=== PATIENT | female | born 1945 | race Two or more races ===

== ENCOUNTER 2024-08-30 21:18 | Inpatient (IN) | payer MEDICARE, OTHER ==
[~2024-08-30] VITALS: Ht 149.9 cm; Wt 42.7 kg
[2024-08-30] MEDS ORDERED: MAGNESIUM SULFATE/D5W 100 ML ONE (21:39)
[2024-08-30] MEDS ORDERED: DOXYCYCLINE HYCLATE 100 MG INJ IV ONE (21:39)
[2024-08-30] MEDS ORDERED: methylPREDNISolone SOD SUCC 125 MG/2 ML VIAL ONE (21:39)
[2024-08-30] MEDS ORDERED: ALBUTEROL SULFATE 2.5 MG/3 ML NEBU ONE ×2 (21:40→23:19)
[2024-08-30] MEDS ORDERED: IPRATROPIUM BROMIDE 0.5 MG/2.5 ML NEBU ONE ×2 (21:40→23:19)
[2024-08-30 21:42] LABS: BASOPHILS # (AUTO) 0.1 K/UL (0.0-0.2); BASOPHILS % (AUTO) 0.7 % (0.0-2.0); DIFFERENTIAL COMMENT 0; EOSINOPHILS # (AUTO) 0.4 K/uL (0.0-0.7); EOSINOPHILS % (AUTO) 3.4 % (0.0-7.0); HEMATOCRIT 25.6 % (31.2-41.9); HEMOGLOBIN 8.1 g/dL (10.9-14.3); LYMPHOCYTES # (AUTO) 2.7 K/uL (0.8-4.8); LYMPHOCYTES % (AUTO) 23.6 % (20.5-51.5); MEAN CORPUSCULAR HEMOGLOBIN 23.1 uug (24.7-32.8); MEAN CORPUSCULAR HGB CONC 32 g/dL (32.3-35.6); MEAN CORPUSCULAR VOLUME 72.7 fL (75.5-95.3); MONOCYTES # (AUTO) 0.8 K/uL (0.1-1.30); MONOCYTES % (AUTO) 6.7 % (0.0-11.0); NEUTROPHILS # (AUTO) 7.6 K/uL (1.8-8.9); NEUTROPHILS % (AUTO) 65.6 % (38.5-71.5); PLATELET COUNT (AUTO) 504 K/uL (179-408); RED BLOOD CELL COUNT(AUTO) 3.51 MIL/uL (3.63-4.92); RED CELL DISTRIBUTION WIDTH 18.2 % (12.3-17.7); WHITE BLOOD COUNT (AUTO) 11.5 K/uL (3.8-11.8)
[2024-08-30 21:45] VITALS: O2SAT 98
[2024-08-30] MEDS: ALBUTEROL SULFATE 2.5 MG/3 ML NEBU NEB ONE ×2 (21:51→22:30)
[2024-08-30] MEDS: IPRATROPIUM BROMIDE 0.5 MG/2.5 ML NEBU NEB ONE ×2 (21:51→22:30)
[2024-08-30] MEDS: DOXYCYCLINE HYCLATE IV 100 MG in IV DEXTROSE 5% 100 ML IV ONE (21:52)
[2024-08-30] MEDS: MAGNESIUM SULFATE 2 GM in IV DEXTROSE 5% 100 ML IV ONE (21:52)
[2024-08-30] MEDS: methylPREDNISolone SOD SUCC 125 MG/2 ML VIAL IV ONE (21:52)
[2024-08-30 22:00] VITALS: O2SAT 99
[2024-08-30 22:01] LABS: ALANINE AMINOTRANSFERASE 22 U/L (14-59); ALBUMIN 3.7 g/dL (3.4-5.0); ALKALINE PHOSPHATASE 129 U/L (50-136); ASPARTATE AMINOTRANSFERASE 15 U/L (15-37); BILIRUBIN,TOTAL 0.4 mg/dL (0.2-1.0); C-REACTIVE PROTEIN 0.18 mg/dL (0.00-0.30); CALCIUM 9.4 mg/dL (8.5-10.1); CARBON DIOXIDE 27 mmol/L (21-32); CHLORIDE 99 mmol/L (98-107); CREATININE 2.5 mg/dL (0.6-1.3); GLUCOSE 204 mg/dL (74-106); MAGNESIUM 2.5 mg/dL (1.8-2.4); POTASSIUM 4.9 mmol/L (3.5-5.1); SODIUM SERUM 139 mmol/L (136-145); TOTAL PROTEIN, SERUM 8.2 g/dL (6.4-8.2); UREA NITROGEN, BLOOD 41 mg/dL (7-18)
[2024-08-30 22:08] LABS: NT-PRO BNP 7451 pg/mL (0-125)
[2024-08-30 22:30] VITALS: O2SAT 97
[2024-08-30 22:45] VITALS: O2SAT 99
[2024-08-30 22:59] LABS: ABG BASE EXCESS -1.3 mmol/L (-2.0-3.0); ABG HCO3 23.4 mmol/L (21.0-28.0); ABG PCO2 38.8 mmHg (32.0-45.0); ABG PH 7.398 (7.350-7.450); ABG PO2 < 40.5 mmHg (83.0-108.0); ABG SITE RIGHT RADIAL; ABG TOTAL HEMOGLOBIN 8.6 G/dL (12.0-16.0); AaDO2 73.2 mmHg; COHb 0.3 % (0.5-1.5); MetHb 0.6 % (0.0-1.5); O2Hb 70.7 % (94.0-98.0)
[2024-08-31] VITALS (7 sets, daily range): BP systolic 92–137; BP diastolic 36–88; TEMP 95.9–98.5; O2SAT 89–99
[2024-08-31] MEDS ORDERED: AMLO10TA59 PO (00:48)
[2024-08-31] MEDS ORDERED: PANT40TA49 PO (00:48)
[2024-08-31] MEDS ORDERED: ATOR80TA PO (00:48)
[2024-08-31] MEDS ORDERED: ASPI81TA31 PO (00:48)
[2024-08-31] MEDS ORDERED: LEVO75TA7 PO (00:48)
[2024-08-31] MEDS ORDERED: METO-358 PO (00:48)
[2024-08-31] MEDS ORDERED: HYDR-501 PO (00:48)
[2024-08-31] MEDS ORDERED: LOSA50TA39 PO (00:48)
[2024-08-31] MEDS ORDERED: GABA100C PO (00:48)
[2024-08-31] MEDS ORDERED: MAGN200T5 PO (00:48)
[2024-08-31] MEDS ORDERED: FURO20TA4 PO (00:48)
[2024-08-31] MEDS ORDERED: ISOS60TA72 PO (00:48)
[2024-08-31 02:20] LABS: ABG BASE EXCESS 1.5 mmol/L (-2.0-3.0); ABG HCO3 26.1 mmol/L (21.0-28.0); ABG PCO2 41.5 mmHg (32.0-45.0); ABG PH 7.417 (7.350-7.450); ABG SITE RIGHT RADIAL; ABG TOTAL HEMOGLOBIN 8.2 G/dL (12.0-16.0); AaDO2 80.7 mmHg; COHb 0.3 % (0.5-1.5); MetHb 0.6 % (0.0-1.5); O2Hb 78.6 % (94.0-98.0)
[2024-08-31] MEDS ORDERED: REMEDY ESSENTIAL ZINC PASTE 113 GM TP PRN (03:00)
[2024-08-31] MEDS ORDERED: ACETAMINOPHEN 325 MG TABLET PO PRN (03:00)
[2024-08-31] MEDS ORDERED: ONDANSETRON 4 MG/2 ML VIAL IV PRN (03:00)
[2024-08-31] MEDS ORDERED: ZOLPIDEM 5 MG TABLET PO PRN (03:00)
[2024-08-31] MEDS ORDERED: MAGNESIUM HYDROXIDE 30 ML LIQUID UDC PO PRN (03:00)
[2024-08-31] MEDS: ALBUTEROL SULFATE 2.5 MG/3 ML NEBU NEB SCH (03:45)
[2024-08-31] MEDS: IPRATROPIUM BROMIDE 0.5 MG/2.5 ML NEBU NEB SCH (03:45)
[2024-08-31] MEDS: FUROSEMIDE 40 MG/4 ML VIAL IV ONE (03:50)
[2024-08-31] MEDS: PANTOPRAZOLE SODIUM 40 MG TABLET.DR PO SCH (06:22)
[2024-08-31] MEDS: methylPREDNISolone SOD SUCC 125 MG/2 ML VIAL IV SCH (06:23)
[2024-08-31] MEDS ORDERED: DOXYCYCLINE HYCLATE IV 200 MG in IV DEXTROSE 5% 250 ML IV SCH (09:00)
[2024-08-31] MEDS: DOXYCYCLINE HYCLATE IV 100 MG in IV DEXTROSE 5% 100 ML IV SCH (11:07)
[2024-08-31] MEDS: GUAIFENESIN/DEXTROMETHORPHAN 5 ML UDC PO PRN (11:52)
[2024-08-31] MEDS: FUROSEMIDE 40 MG/4 ML VIAL IV SCH (13:12)
[2024-08-31] MEDS ORDERED: ISOS30TA86 PO (15:41)
[2024-08-31] MEDS ORDERED: ERGO500040 PO (15:41)
[2024-08-31] MEDS ORDERED: hydrOXYzine HCL 25 MG TABLET PO PRN (17:15)
[2024-08-31] MEDS: FLUTICASONE/VILANTEROL 1 EACH BLST.W.DEV INH SCH (18:05)
[2024-08-31] MEDS: GABAPENTIN 100 MG CAPSULE PO SCH (18:05)
[2024-08-31 19:09] LABS: *BILIRUBIN,URIN NEGATIVE (NEGATIVE); *BLOOD, URINE NEGATIVE (NEGATIVE); *CLARITY,URINE CLEAR (CLEAR); *COLOR,URINE YELLOW (YELLOW); *KETONES,URINE NEGATIVE (NEGATIVE); *PROTEIN,URINE TRACE (NEGATIVE); *UROBILINOGEN,URINE 0.2 E.U./dl (NORMAL); LEUKOCYTE ESTERASE ,URINE TRACE (NEGATIVE); NITRITE, URINE NEGATIVE (NEGATIVE); PH,URINE 5.5 (5.0-8.0); UGLUCOSE TRACE (NEGATIVE)
[2024-08-31 19:11] LABS: RBC,URINE 0-3 /HPF (0-3)
[2024-08-31] MEDS: methylPREDNISolone SOD SUCC 40 MG/ML VIAL IV SCH (22:46)
[2024-08-31] MEDS: MINERAL OIL/PETROLAT OPHT OINT 3.5 GM TUBE EACHEYE SCH (22:52)
[2024-08-31 23:03] LABS: *CREATININE,URINE 41.9 mg/dL (30-125); *URINE TOTAL PROTEIN RANDOM 22.5 mg/dL (<150/24HR)
[2024-09-01] VITALS (15 sets, daily range): BP systolic 93–129; BP diastolic 40–65; TEMP 97.2–98.3; O2SAT 90–99
[2024-09-01] MEDS: LEVOTHYROXINE SODIUM 75 MCG TABLET PO SCH (06:34)
[2024-09-01 07:12] LABS: IRON, SERUM 14 ug/dL (50-175)
[2024-09-01 07:20] LABS: BASOPHILS % (AUTO) 0.1 % (0.0-2.0); DIFFERENTIAL COMMENT 0; LYMPHOCYTES # (AUTO) 0.4 K/uL (0.8-4.8); LYMPHOCYTES % (AUTO) 3.6 % (20.5-51.5); MEAN CORPUSCULAR HEMOGLOBIN 24.1 uug (24.7-32.8); MEAN CORPUSCULAR HGB CONC 34 g/dL (32.3-35.6); MEAN CORPUSCULAR VOLUME 71.6 fL (75.5-95.3); MONOCYTES # (AUTO) 0.3 K/uL (0.1-1.30); MONOCYTES % (AUTO) 2.4 % (0.0-11.0); NEUTROPHILS # (AUTO) 10.3 K/uL (1.8-8.9); NEUTROPHILS % (AUTO) 93.9 % (38.5-71.5); PLATELET COUNT (AUTO) 389 K/uL (179-408); RED BLOOD CELL COUNT(AUTO) 2.84 MIL/uL (3.63-4.92)
[2024-09-01 07:21] LABS: THYROID STIMULATING HORMONE 0.291 mIU/mL (0.358-3.740)
[2024-09-01 07:26] LABS: HEMATOCRIT 20.3 % (31.2-41.9); HEMOGLOBIN 6.8 g/dL (10.9-14.3)
[2024-09-01 08:12] LABS: CALCIUM 8.6 mg/dL (8.5-10.1); CARBON DIOXIDE 26 mmol/L (21-32); CHLORIDE 98 mmol/L (98-107); CREATININE 3.2 mg/dL (0.6-1.3); GLUCOSE 339 mg/dL (74-106); POTASSIUM 4.4 mmol/L (3.5-5.1); SODIUM SERUM 138 mmol/L (136-145); UREA NITROGEN, BLOOD 65 mg/dL (7-18)
[2024-09-01 08:13] LABS: BILIRUBIN,DIRECT 0.1 mg/dL (0.0-0.2); CREATINE KINASE, TOTAL 85 U/L (26-192); MAGNESIUM 2.7 mg/dL (1.8-2.4); PHOSPHOROUS 5.4 mg/dL (2.5-4.9)
[2024-09-01 08:50] LABS: FERRITIN 37 ng/mL (8-252)
[2024-09-01] MEDS: ASPIRIN EC 81 MG TABLET.DR PO SCH (08:50)
[2024-09-01] MEDS: ISOSORBIDE MONONITRATE 30 MG TAB.SR.24H PO SCH (08:52)
[2024-09-01 10:48] LABS: NEUTROPHILS % (MANUAL) 94 % (42-75)
[2024-09-01 10:49] LABS: LYMPHOCYTES % (MANUAL) 4 % (20-40); MONOCYTES % (MANUAL) 2 % (2-10); PLATELET ESTIMATE INCREASED
[2024-09-01] MEDS: PANTOPRAZOLE SODIUM 40 MG TABLET.DR PO SCH (18:07)
[2024-09-01] MEDS ORDERED: DEXTROSE 50% 50 ML DISP.SYRIN IV PRN (19:15)
[2024-09-01] MEDS: BLOOD SUGAR DIAGNOSTIC 1 EACH STRIP VI SCH (20:28)
[2024-09-01] MEDS: INSULIN REGULAR, HUMAN 1000 UNIT/10 ML VIAL SQ PRN (20:39)
[2024-09-02] VITALS (11 sets, daily range): BP systolic 91–133; BP diastolic 47–66; TEMP 97.4–98; O2SAT 93–99
[2024-09-02 08:10] LABS: PTH, INTACT 96 pg/mL (15-65)
[2024-09-02 09:25] LABS: HEMATOCRIT 25.7 % (31.2-41.9); HEMOGLOBIN 8.6 g/dL (10.9-14.3); LYMPHOCYTES # (AUTO) 0.3 K/uL (0.8-4.8); LYMPHOCYTES % (AUTO) 4.3 % (20.5-51.5); MEAN CORPUSCULAR HEMOGLOBIN 24.9 uug (24.7-32.8); MEAN CORPUSCULAR HGB CONC 34 g/dL (32.3-35.6); MEAN CORPUSCULAR VOLUME 74.1 fL (75.5-95.3); MONOCYTES # (AUTO) 0.2 K/uL (0.1-1.30); NEUTROPHILS # (AUTO) 7.3 K/uL (1.8-8.9); NEUTROPHILS % (AUTO) 92.7 % (38.5-71.5); PLATELET COUNT (AUTO) 397 K/uL (179-408); RED BLOOD CELL COUNT(AUTO) 3.47 MIL/uL (3.63-4.92); RED CELL DISTRIBUTION WIDTH 19.2 % (12.3-17.7); WHITE BLOOD COUNT (AUTO) 7.9 K/uL (3.8-11.8)
[2024-09-02 09:37] LABS: DIFFERENTIAL COMMENT 1
[2024-09-02 09:43] LABS: ALANINE AMINOTRANSFERASE 22 U/L (14-59); ALBUMIN 3.4 g/dL (3.4-5.0); ALKALINE PHOSPHATASE 104 U/L (50-136); ASPARTATE AMINOTRANSFERASE 12 U/L (15-37); BILIRUBIN,TOTAL 0.9 mg/dL (0.2-1.0); CALCIUM 8.3 mg/dL (8.5-10.1); CARBON DIOXIDE 29 mmol/L (21-32); CHLORIDE 100 mmol/L (98-107); CREATININE 3.1 mg/dL (0.6-1.3); GLUCOSE 285 mg/dL (74-106); MAGNESIUM 2.8 mg/dL (1.8-2.4); PHOSPHOROUS 5.5 mg/dL (2.5-4.9); POTASSIUM 4.1 mmol/L (3.5-5.1); SODIUM SERUM 139 mmol/L (136-145); TOTAL PROTEIN, SERUM 6.9 g/dL (6.4-8.2); UREA NITROGEN, BLOOD 76 mg/dL (7-18)
[2024-09-02] MEDS ORDERED: MEROPENEM 1 G in IV NORMAL SALINE 100 ML IV SCH (15:30)
[2024-09-02] MEDS: MEROPENEM 500 MG in IV NORMAL SALINE 50 ML IV SCH (17:18)
[2024-09-02 20:31] LABS: HIV-1/2 ANTIBODY NON REACTIVE (NONREACTIVE)
[2024-09-02 20:32] LABS: HIV-1 p24 ANTIGEN NON REACTIVE (NONREACTIVE)
[2024-09-02] MEDS: DOXYCYCLINE HYCLATE 100 MG TABLET PO SCH (20:49)
[2024-09-02] MEDS: MELATONIN 3 MG TABLET PO PRN (22:23)
[2024-09-02 22:43] LABS: *OCCULT BLOOD STOOL NEGATIVE (NEGATIVE)
[2024-09-03 00:44] VITALS: BP 99/53; TEMP 97.8; O2SAT 96
[2024-09-03 04:35] VITALS: BP 130/74; TEMP 97.5; O2SAT 100
[2024-09-03 05:07] LABS: A/G RATIO 0.9 (0.7-1.7); ALBUMIN 2.9 g/dL (2.9-4.4); ALPHA-1-GLOBULIN 0.3 g/dL (0.0-0.4); ALPHA-2-GLOBULIN 0.9 g/dL (0.4-1.0); GAMMA GLOBULIN 0.9 g/dL (0.4-1.8); GLOBULIN, TOTAL 3.2 g/dL (2.2-3.9); M-SPIKE Not Observed g/dL (Not Observed); PROTEIN, TOTAL 6.1 g/dL (6.0-8.5)
[2024-09-03 07:07] LABS: HEMATOCRIT 23.2 % (31.2-41.9); HEMOGLOBIN 7.9 g/dL (10.9-14.3); LYMPHOCYTES # (AUTO) 0.3 K/uL (0.8-4.8); LYMPHOCYTES % (AUTO) 6.1 % (20.5-51.5); MEAN CORPUSCULAR HEMOGLOBIN 25.2 uug (24.7-32.8); MEAN CORPUSCULAR HGB CONC 34 g/dL (32.3-35.6); MEAN CORPUSCULAR VOLUME 73.6 fL (75.5-95.3); MONOCYTES # (AUTO) 0.2 K/uL (0.1-1.30); MONOCYTES % (AUTO) 3.6 % (0.0-11.0); NEUTROPHILS # (AUTO) 4.4 K/uL (1.8-8.9); NEUTROPHILS % (AUTO) 90.3 % (38.5-71.5); PLATELET COUNT (AUTO) 349 K/uL (179-408); RED BLOOD CELL COUNT(AUTO) 3.16 MIL/uL (3.63-4.92); RED CELL DISTRIBUTION WIDTH 19.6 % (12.3-17.7); WHITE BLOOD COUNT (AUTO) 4.9 K/uL (3.8-11.8)
[2024-09-03 07:16] LABS: DIFFERENTIAL COMMENT 1
[2024-09-03 07:17] LABS: ALANINE AMINOTRANSFERASE 16 U/L (14-59); ALKALINE PHOSPHATASE 86 U/L (50-136); ASPARTATE AMINOTRANSFERASE 14 U/L (15-37); BILIRUBIN,TOTAL 0.6 mg/dL (0.2-1.0); CALCIUM 8.3 mg/dL (8.5-10.1); CARBON DIOXIDE 26 mmol/L (21-32); CHLORIDE 103 mmol/L (98-107); CREATININE 2.8 mg/dL (0.6-1.3); GLUCOSE 265 mg/dL (74-106); MAGNESIUM 2.7 mg/dL (1.8-2.4); POTASSIUM 4.3 mmol/L (3.5-5.1); SODIUM SERUM 140 mmol/L (136-145); TOTAL PROTEIN, SERUM 6.3 g/dL (6.4-8.2); UREA NITROGEN, BLOOD 74 mg/dL (7-18)
[2024-09-03 07:35] VITALS: BP 98/53; TEMP 97.8; O2SAT 100
[2024-09-03 10:07] LABS: LYMPHOCYTES % (MANUAL) 6 % (20-40); MONOCYTES % (MANUAL) 4 % (2-10); NEUTROPHILS % (MANUAL) 90 % (42-75)
[2024-09-03 10:08] LABS: PLATELET ESTIMATE ADEQUATE
[2024-09-03 11:34] VITALS: BP 114/60; TEMP 98.1; O2SAT 94
[2024-09-03] MEDS: methylPREDNISolone SOD SUCC 40 MG/ML VIAL IV SCH (14:52)
[2024-09-03 16:00] VITALS: BP 106/63; TEMP 98; O2SAT 98
[2024-09-03] MEDS: BLOOD SUGAR DIAGNOSTIC 1 EACH STRIP VI SCH (18:09)
[2024-09-03] MEDS ORDERED: BISACODYL 10 MG SUPP.RECT RC PRN (18:30)
[2024-09-03 19:44] VITALS: BP 101/53; TEMP 98.6; O2SAT 98
[2024-09-03] MEDS: DOCUSATE SODIUM 100 MG CAPSULE PO SCH (21:12)
[2024-09-03] MEDS: INSULIN GLARGINE,HUM 300 UNITS/3 ML CARTRIDGE SQ SCH (21:15)
[2024-09-04] VITALS (15 sets, daily range): BP systolic 96–136; BP diastolic 50–74; TEMP 97–98.6; O2SAT 97–100
[2024-09-04 07:46] LABS: HEMATOCRIT 25.6 % (31.2-41.9); HEMOGLOBIN 8.6 g/dL (10.9-14.3); LYMPHOCYTES # (AUTO) 0.3 K/uL (0.8-4.8); LYMPHOCYTES % (AUTO) 5.4 % (20.5-51.5); MEAN CORPUSCULAR HEMOGLOBIN 25.2 uug (24.7-32.8); MEAN CORPUSCULAR HGB CONC 34 g/dL (32.3-35.6); MEAN CORPUSCULAR VOLUME 74.8 fL (75.5-95.3); MONOCYTES # (AUTO) 0.3 K/uL (0.1-1.30); MONOCYTES % (AUTO) 5.9 % (0.0-11.0); NEUTROPHILS # (AUTO) 4.5 K/uL (1.8-8.9); NEUTROPHILS % (AUTO) 88.7 % (38.5-71.5); PLATELET COUNT (AUTO) 368 K/uL (179-408); RED BLOOD CELL COUNT(AUTO) 3.42 MIL/uL (3.63-4.92); RED CELL DISTRIBUTION WIDTH 19.9 % (12.3-17.7); WHITE BLOOD COUNT (AUTO) 5.1 K/uL (3.8-11.8)
[2024-09-04 07:51] LABS: DIFFERENTIAL COMMENT 1
[2024-09-04 07:57] LABS: CALCIUM 8.2 mg/dL (8.5-10.1); CARBON DIOXIDE 27 mmol/L (21-32); CHLORIDE 104 mmol/L (98-107); CREATININE 2.5 mg/dL (0.6-1.3); GLUCOSE 257 mg/dL (74-106); MAGNESIUM 2.4 mg/dL (1.8-2.4); PHOSPHOROUS 4.4 mg/dL (2.5-4.9); POTASSIUM 4.1 mmol/L (3.5-5.1); SODIUM SERUM 141 mmol/L (136-145); UREA NITROGEN, BLOOD 72 mg/dL (7-18)
[2024-09-04 08:06] LABS: HEPATITIS B CORE AB, TOTAL Negative (Negative); HEPATITIS B SURFACE AG Negative (Negative); HEPATITIS C VIRUS ANTIBODY Non Reactive (Non Reactive)
[2024-09-04 11:00] LABS: C-REACTIVE PROTEIN 0.07 mg/dL (0.00-0.30)
[2024-09-04] MEDS: FUROSEMIDE 20 MG/2 ML VIAL IV SCH (12:22)
[2024-09-04 12:48] LABS: LYMPHOCYTES % (MANUAL) 8 % (20-40); MONOCYTES % (MANUAL) 6 % (2-10); NEUTROPHILS % (MANUAL) 86 % (42-75); PLATELET ESTIMATE ADEQUATE
[2024-09-04 12:49] LABS: ANISOCYTOSIS 2+; HYPOCHROMASIA 1+
[2024-09-05] VITALS (17 sets, daily range): BP systolic 110–154; BP diastolic 54–73; TEMP 97.7–98.8; O2SAT 94–100
[2024-09-05 06:54] LABS: BASOPHILS % (AUTO) 0.1 % (0.0-2.0); HEMOGLOBIN 9.1 g/dL (10.9-14.3); LYMPHOCYTES # (AUTO) 0.4 K/uL (0.8-4.8); LYMPHOCYTES % (AUTO) 8.4 % (20.5-51.5); MEAN CORPUSCULAR HGB CONC 34 g/dL (32.3-35.6); MEAN CORPUSCULAR VOLUME 74.6 fL (75.5-95.3); MONOCYTES # (AUTO) 0.5 K/uL (0.1-1.30); MONOCYTES % (AUTO) 9.9 % (0.0-11.0); NEUTROPHILS % (AUTO) 81.6 % (38.5-71.5); PLATELET COUNT (AUTO) 367 K/uL (179-408); RED BLOOD CELL COUNT(AUTO) 3.62 MIL/uL (3.63-4.92); RED CELL DISTRIBUTION WIDTH 20.2 % (12.3-17.7); WHITE BLOOD COUNT (AUTO) 4.8 K/uL (3.8-11.8)
[2024-09-05 07:10] LABS: CALCIUM 8.7 mg/dL (8.5-10.1); CARBON DIOXIDE 30 mmol/L (21-32); CHLORIDE 102 mmol/L (98-107); CREATININE 2.5 mg/dL (0.6-1.3); GLUCOSE 290 mg/dL (74-106); POTASSIUM 4.8 mmol/L (3.5-5.1); SODIUM SERUM 142 mmol/L (136-145); UREA NITROGEN, BLOOD 79 mg/dL (7-18)
[2024-09-05 07:15] LABS: DIFFERENTIAL COMMENT 1
[2024-09-05] MEDS ORDERED: AMIODARONE HCL 150 MG/3 ML VIAL IV ONE ×2 (22:55→22:57)
[2024-09-05] MEDS: AMIODARONE HCL IV 150 MG in IV DEXTROSE 5% 100 ML IV ONE (23:15)
[2024-09-05] MEDS: AMIODARONE HCL IV 450 MG in IV DEXTROSE 5% 250 ML IV PRN (23:30)
[2024-09-06] VITALS (17 sets, daily range): BP systolic 110–135; BP diastolic 48–75; TEMP 97.8–98.4; O2SAT 97–100
[2024-09-06] MEDS: ALBUTEROL SULFATE 2.5 MG/ 0.5 ML NEBU NEB SCH (01:12)
[2024-09-06] MEDS ORDERED: LEVALBUTEROL HCL NEB 0.63 MG/3 ML NEBU NEB SCH (01:30)
[2024-09-06] MEDS: methylPREDNISolone SOD SUCC 40 MG/ML VIAL IV SCH (08:23)
[2024-09-06] MEDS: ASPIRIN 81 MG TAB.CHEW PO SCH (11:10)
[2024-09-06 11:59] LABS: BASOPHILS % (AUTO) 0.1 % (0.0-2.0); EOSINOPHILS # (AUTO) 0.1 K/uL (0.0-0.7); EOSINOPHILS % (AUTO) 1.2 % (0.0-7.0); HEMATOCRIT 28.3 % (31.2-41.9); HEMOGLOBIN 9.3 g/dL (10.9-14.3); LYMPHOCYTES # (AUTO) 1.6 K/uL (0.8-4.8); LYMPHOCYTES % (AUTO) 18.2 % (20.5-51.5); MEAN CORPUSCULAR HEMOGLOBIN 24.5 uug (24.7-32.8); MEAN CORPUSCULAR HGB CONC 33 g/dL (32.3-35.6); MEAN CORPUSCULAR VOLUME 74.9 fL (75.5-95.3); MONOCYTES # (AUTO) 1.1 K/uL (0.1-1.30); MONOCYTES % (AUTO) 12.8 % (0.0-11.0); NEUTROPHILS # (AUTO) 5.8 K/uL (1.8-8.9); NEUTROPHILS % (AUTO) 67.7 % (38.5-71.5); PLATELET COUNT (AUTO) 355 K/uL (179-408); RED BLOOD CELL COUNT(AUTO) 3.78 MIL/uL (3.63-4.92); RED CELL DISTRIBUTION WIDTH 20.3 % (12.3-17.7); WHITE BLOOD COUNT (AUTO) 8.6 K/uL (3.8-11.8)
[2024-09-06 12:09] LABS: DIFFERENTIAL COMMENT 1
[2024-09-06 12:23] LABS: ALANINE AMINOTRANSFERASE 17 U/L (14-59); ALKALINE PHOSPHATASE 76 U/L (50-136); ASPARTATE AMINOTRANSFERASE 17 U/L (15-37); BILIRUBIN,TOTAL 0.7 mg/dL (0.2-1.0); CALCIUM 8.3 mg/dL (8.5-10.1); CARBON DIOXIDE 30 mmol/L (21-32); CHLORIDE 103 mmol/L (98-107); CREATININE 2.6 mg/dL (0.6-1.3); GLUCOSE 68 mg/dL (74-106); PHOSPHOROUS 5.8 mg/dL (2.5-4.9); POTASSIUM 4.1 mmol/L (3.5-5.1); SODIUM SERUM 143 mmol/L (136-145); TOTAL PROTEIN, SERUM 6.2 g/dL (6.4-8.2)
[2024-09-06 12:27] LABS: UREA NITROGEN, BLOOD 85 mg/dL (7-18)
[2024-09-06 12:50] LABS: EOSINOPHILS % (MANUAL) 1 % (0-8); LYMPHOCYTES % (MANUAL) 13 % (20-40); MONOCYTES % (MANUAL) 10 % (2-10); NEUTROPHILS % (MANUAL) 76 % (42-75)
[2024-09-06 12:51] LABS: ANISOCYTOSIS 2+; HYPOCHROMASIA 1+; PLATELET ESTIMATE ADEQUATE
[2024-09-06] MEDS: GLUCERNA SHAKE 237 ML CAN PO SCH (17:00)
[2024-09-07] VITALS (10 sets, daily range): BP systolic 104–140; BP diastolic 50–66; TEMP 97.7–98.8; O2SAT 96–100
[2024-09-07 06:58] LABS: BASOPHILS % (AUTO) 0.1 % (0.0-2.0); EOSINOPHILS # (AUTO) 0.2 K/uL (0.0-0.7); HEMATOCRIT 26.9 % (31.2-41.9); HEMOGLOBIN 9.1 g/dL (10.9-14.3); LYMPHOCYTES # (AUTO) 1.4 K/uL (0.8-4.8); LYMPHOCYTES % (AUTO) 16.6 % (20.5-51.5); MEAN CORPUSCULAR HEMOGLOBIN 25.2 uug (24.7-32.8); MEAN CORPUSCULAR HGB CONC 34 g/dL (32.3-35.6); MEAN CORPUSCULAR VOLUME 74.5 fL (75.5-95.3); MONOCYTES % (AUTO) 11.7 % (0.0-11.0); NEUTROPHILS % (AUTO) 69.6 % (38.5-71.5); PLATELET COUNT (AUTO) 308 K/uL (179-408); RED BLOOD CELL COUNT(AUTO) 3.61 MIL/uL (3.63-4.92); RED CELL DISTRIBUTION WIDTH 20.2 % (12.3-17.7); WHITE BLOOD COUNT (AUTO) 8.6 K/uL (3.8-11.8)
[2024-09-07 07:18] LABS: DIFFERENTIAL COMMENT 1
[2024-09-07 07:19] LABS: CALCIUM 8.1 mg/dL (8.5-10.1); CARBON DIOXIDE 31 mmol/L (21-32); CHLORIDE 103 mmol/L (98-107); CREATININE 2.6 mg/dL (0.6-1.3); GLUCOSE 88 mg/dL (74-106); PHOSPHOROUS 5.6 mg/dL (2.5-4.9); POTASSIUM 4.4 mmol/L (3.5-5.1); SODIUM SERUM 140 mmol/L (136-145)
[2024-09-07 07:24] LABS: UREA NITROGEN, BLOOD 83 mg/dL (7-18)
[2024-09-07] MEDS: FUROSEMIDE 20 MG TABLET PO SCH (09:11)
[2024-09-07] MEDS: AMIODARONE HCL 200 MG TABLET PO SCH (09:12)
[2024-09-07] MEDS ORDERED: AMIO200T6 PO (11:11)
[2024-09-07] MEDS ORDERED: FURO20TA4 PO (11:11)
[2024-09-07] MEDS ORDERED: EMPA10TA PO (11:13)
[2024-09-07] MEDS ORDERED: PRED20TA PO (11:15)
[2024-09-07 19:06] LABS: *ANTI-SCLERODERMA-70 AB <0.2 AI (0.0-0.9); *RNP ANTIBODIES 0.3 AI (0.0-0.9); *SJOGREN'S ANTI-SS-A <0.2 AI (0.0-0.9); *SJOGREN'S ANTI-SS-B <0.2 AI (0.0-0.9); *SMITH ANTIBODIES <0.2 AI (0.0-0.9); ANTI-DNA(DS) AB, QN 1 IU/mL (0-9); ANTI-NUCLEAR AB DIRECT Negative (Negative)
== END 2024-09-07 15:10 | disposition home or self-care (01) | DRG 280 ==
LOC: ER 21:59 → TELE3 08-31 01:26 → TELE-TD3 09-05 22:45
PROVIDERS: ADMIT Student in an Organized Health Care Education/Training Program; ATTEND Internal Medicine
PROC: 5A09457 Assistance with Respiratory Ventilation, 24-96 Consecutive Hours, Continuous Positive Airway Pressure (ICD-10-PCS; principal; 2024-08-31)
PROC: 30233N1 Transfusion of Nonautologous Red Blood Cells into Peripheral Vein, Percutaneous Approach (ICD-10-PCS; 2024-09-01)
DX: I13.0 Hypertensive heart and chronic kidney disease with heart failure and stage 1 through stage 4 chronic kidney disease, or unspecified chronic kidney disease (principal); I50.33 Acute on chronic diastolic (congestive) heart failure; I21.A1 Myocardial infarction type 2; J96.21 Acute and chronic respiratory failure with hypoxia; K55.21 Angiodysplasia of colon with hemorrhage; N17.0 Acute kidney failure with tubular necrosis; J18.9 Pneumonia, unspecified organism; D68.59 Other primary thrombophilia; N18.4 Chronic kidney disease, stage 4 (severe); M48.54XA Collapsed vertebra, not elsewhere classified, thoracic region, initial encounter for fracture; J44.1 Chronic obstructive pulmonary disease with (acute) exacerbation; J44.0 Chronic obstructive pulmonary disease with (acute) lower respiratory infection; E11.65 Type 2 diabetes mellitus with hyperglycemia; E03.9 Hypothyroidism, unspecified; I25.10 Atherosclerotic heart disease of native coronary artery without angina pectoris; D63.1 Anemia in chronic kidney disease; K57.30 Diverticulosis of large intestine without perforation or abscess without bleeding; Z86.16 Personal history of COVID-19; Z88.0 Allergy status to penicillin; Z86.73 Personal history of transient ischemic attack (TIA), and cerebral infarction without residual deficits; Z87.891 Personal history of nicotine dependence; Z79.890 Hormone replacement therapy; Z95.5 Presence of coronary angioplasty implant and graft; Z74.09 Other reduced mobility; E78.5 Hyperlipidemia, unspecified; N26.1 Atrophy of kidney (terminal); Z79.899 Other long term (current) drug therapy; I70.0 Atherosclerosis of aorta; I48.0 Paroxysmal atrial fibrillation; E11.22 Type 2 diabetes mellitus with diabetic chronic kidney disease; I65.23 Occlusion and stenosis of bilateral carotid arteries; I35.8 Other nonrheumatic aortic valve disorders; T38.0X5A Adverse effect of glucocorticoids and synthetic analogues, initial encounter; Y92.230 Patient room in hospital as the place of occurrence of the external cause
CPT/HCPCS: 36415; 36600; 70030-TC; 71045; 71250; 76770; 82803; 83550; 83735; 83970; 84100; 84155; 84165; 84300; 84443; 84484; 85025; 86038; 86140; 86704; 86803; 86850; 86900; 86901; 86920; 87340; 87806; 93005; 93307; 94640; 94660; 94760; 99082-TC; A4663; G0378; J0282; J1815; J1940; J1956; J2185; J2919; J3475; J3490; J3590; J7050; J7060; P9016